=== PATIENT | female | born 1950 | race African-American/Black ===

== ENCOUNTER 2025-01-14 13:23 | Emergency (ER) | payer BC ==
[~2025-01-14] VITALS: Ht 172.7 cm; Wt 81.0 kg
[2025-01-14 13:29] VITALS: O2SAT 97
[2025-01-14 18:12] LABS: BASOPHILS % 0.8 % (0.0-2.0); EOSINOPHILS % 0.3 % (0.0-5.0); HEMATOCRIT. 33.7 % (36.0-48.0); HEMOGLOBIN. 10.5 g/dL (12.0-16.0); LYMPHOCYTES % 19.1 % (20.0-50.0); MEAN CORPUSCULAR HEMOGLOBIN 27.1 pg (28.0-32.0); MEAN CORPUSCULAR HGB CONC 31.2 g/dL (31.0-37.0); MEAN CORPUSCULAR VOLUME 87.1 fL (81.0-99.0); MEAN PLATELET VOLUME 9.8 fl (7.4-10.4); MONOCYTES % 11.3 % (2.0-8.0); NEUTROPHILS % 68.5 % (40.0-76.0); PLATELET 290 x1000/uL (130-400); RED BLOOD CELL COUNT 3.87 mill/uL (4.2-5.4); RED CELL DISTRIBUTION WIDTH 16.4 % (11.6-14.6)
[2025-01-14 18:16] LABS: PROTHROMBIN TIME 10.5 sec (9.6-11.0)
[2025-01-14 18:19] LABS: CHLORIDE 103 mEq/L (98-107); POTASSIUM 3.4 mEq/L (3.5-5.1); SODIUM 144 mEq/L (136-145)
[2025-01-14 18:20] LABS: CALCIUM 10.1 mg/dL (8.7-10.4); CARBON DIOXIDE 32 mEq/L (21-32)
[2025-01-14 18:25] LABS: CREATININE 1.7 mg/dL (0.6-1.0); GLUCOSE 116 mg/dL (70-105); UREA NITROGEN BLOOD 36 mg/dL (9-23)
[2025-01-14 18:27] LABS: ALANINE AMINOTRANSFERASE 12 IU/L (10-49); ALBUMIN 3.8 g/dL (3.2-4.8); ASPARTATE AMINOTRANSFERASE 24 IU/L (<34); BILIRUBIN DIRECT 0.3 mg/dL (<=3.0); BILIRUBIN TOTAL 1.1 mg/dL (0.1-1.0)
[2025-01-14] MEDS ORDERED: CEPH500C2 MT (18:38)
[2025-01-14 19:45] VITALS: BP 109/89; PULSE 68; RESP 18; TEMP 36.9; O2SAT 99
== END 2025-01-14 19:51 | disposition home or self-care (01) ==
LOC: ER 13:23
DX: N39.0 Urinary tract infection, site not specified (principal); F03.90 Unspecified dementia, unspecified severity, without behavioral disturbance, psychotic disturbance, mood disturbance, and anxiety
CPT/HCPCS: 36415; 80048; 80076; 85025; 93005; 99284

== ENCOUNTER 2025-04-24 19:28 | Inpatient (IN) | payer BC, MEDICARE ==
[~2025-04-24] VITALS: Ht 167.6 cm; Wt 70.3 kg
[~2025-04-24 19:28] MED LIST: CEPH500C2 MT; DONE10TA43 MT; METO1TAB24 PO; OLAN2.5T77 PO; QUET100T MT
[2025-04-24 20:29] LABS: BASOPHILS % 0.8 % (0.0-2.0); EOSINOPHILS % 2.0 % (0.0-5.0); HEMATOCRIT. 21.9 % (36.0-48.0); LYMPHOCYTES % 8.7 % (20.0-50.0); MEAN PLATELET VOLUME 7.2 fl (7.4-10.4); MONOCYTES % 6.7 % (2.0-8.0); NEUTROPHILS % 81.8 % (40.0-76.0); PLATELET 931 x1000/uL (130-400); RED BLOOD CELL COUNT 2.64 mill/uL (4.2-5.4); RED CELL DISTRIBUTION WIDTH 18.2 % (11.6-14.6)
[2025-04-24] MEDS: SODIUM CHLORIDE 0.9% 1,000 ML IV ONE (20:29)
[2025-04-24] MEDS: CEFTRIAXONE 1GM/50ML 50 ML IV ONE (20:29)
[2025-04-24 20:31] LABS: HEMOGLOBIN. 7.0 g/dL (12.0-16.0)
[2025-04-24 20:43] LABS: CREATININE 0.9 mg/dL (0.6-1.0); UREA NITROGEN BLOOD 19 mg/dL (9-23)
[2025-04-24 20:45] LABS: ASPARTATE AMINOTRANSFERASE 58 IU/L (<34); BILIRUBIN DIRECT < 0.1 mg/dL (<=3.0); BILIRUBIN TOTAL 0.3 mg/dL (0.1-1.0); PROTEIN TOTAL 6.6 g/dL (6.0-8.3); TROPONIN I HIGH SENSITIVITY < 4 ng/L (3.0-34)
[2025-04-24 21:17] LABS: INR 1.1
[2025-04-24 21:30] LABS: INFLUENZA TYPE A Presumptive Negative (Pres. Neg.)
[2025-04-24 21:31] LABS: INFLUENZA TYPE B Presumptive Negative (Pres. Neg.)
[2025-04-24 22:40] LABS: CLARITY URINE TURBID (CLEAR); COLOR URINE YELLOW (YELLOW); GLUCOSE URINE NEGATIVE (NEGATIVE); KETONES URINE NEGATIVE (NEGATIVE); LEUKOCYTE ESTERASE URINE 3+ (NEGATIVE); NITRITE URINE NEGATIVE (NEGATIVE); OCCULT BLOOD URINE 1+ (NEGATIVE); PH URINE 6.0 (4.5-8.0); PROTEIN URINE 1+ (NEGATIVE); SPECIFIC GRAVITY URINE 1.012 (1.005-1.030); UROBILINOGEN URINE 0.2 E.U./dL (0.2-1.0)
[2025-04-24 22:59] LABS: BACTERIA URINE 2+; SQUAMOUS EPITHELIAL CELL URINE FEW /lpf (RARE/1+); WBC URINE 50-100 /hpf (0-2)
[2025-04-24] MEDS ORDERED: GUAIFENESIN 200MG/10ML SUGAR FREE UDC PO PRN (23:30)
[2025-04-24] MEDS ORDERED: ONDANSETRON HCL 4MG/2ML INJ IV PRN (23:30)
[2025-04-24] MEDS ORDERED: DOCUSATE SODIUM 100MG CAPSULE PO PRN (23:30)
[2025-04-24] MEDS ORDERED: MAGNESIUM/ALUMINUM HYDROXIDE/SIMETHICONE 30ML UDC PO PRN (23:30)
[2025-04-24] MEDS ORDERED: ACETAMINOPHEN 325MG TABLET PO PRN ×2 (23:30)
[2025-04-24] MEDS ORDERED: ACETAMINOPHEN 650MG SUPP PR PRN (23:30)
[2025-04-24 23:53] LABS: *AMPHETAMINES SCREEN URINE NEGATIVE (NEGATIVE); *BARBITURATES SCREEN URINE NEGATIVE (NEGATIVE); *BENZODIAZEPINES SCREEN URINE NEGATIVE (NEGATIVE); *COCAINE SCREEN URINE NEGATIVE (NEGATIVE); METHADONE URINE SCREEN NEGATIVE (NEGATIVE); OPIATES URINE SCREEN NEGATIVE (NEGATIVE)
[2025-04-24 23:54] LABS: CANNABINOID URINE SCREEN NEGATIVE (NEGATIVE); ECSTASY MDMA SCREEN URINE NEGATIVE (NEGATIVE); PHENCYCLIDINE URINE SCREEN NEGATIVE (NEGATIVE)
[2025-04-24] MEDS ORDERED: IPRATROPIUM/ALBUTEROL 0.5-3(2.5)MG/3ML NEB HHN PRN (23:54)
[2025-04-25 00:02] LABS: VITAMIN B12 SERUM 649 pg/mL (211-911)
[2025-04-25 00:18] LABS: FOLIC ACID (FOLATE) SERUM > 20.00 ng/mL (>5.38)
[2025-04-25] MEDS: ACETAMINOPHEN 650MG SUPP PR STA (00:23)
[2025-04-25 00:35] VITALS: BP 129/51; PULSE 102; RESP 18; TEMP 36.9
[2025-04-25 04:00] VITALS: BP 130/53; PULSE 100; RESP 20; TEMP 36.8; O2SAT 99
[2025-04-25 08:00] VITALS: BP 133/64; PULSE 89; RESP 18; TEMP 37.2; O2SAT 98
[2025-04-25] MEDS ORDERED: AZITHROMYCIN 500MG/250ML 250 ML IV SCH (08:00)
[2025-04-25 12:00] VITALS: BP 145/71; PULSE 97; RESP 18; TEMP 37.1; O2SAT 100
[2025-04-25] MEDS: PANTOPRAZOLE SODIUM 40 MG/VIAL IV SCH (12:07)
[2025-04-25] MEDS: DEXT 5%/LACTATED RINGERS 1,000 ML IV SCH ×2 (12:07→14:56)
[2025-04-25] MEDS: ENOXAPARIN 30MG/0.3ML SYR SUBCUT SCH (12:07)
[2025-04-25] MEDS: PIPERACILLIN/TAZO 3.375G/50ML 50 ML IV SCH (14:56)
[2025-04-25 16:00] VITALS: BP 152/80; PULSE 100; RESP 18; TEMP 36.9; O2SAT 100
[2025-04-25 16:39] LABS: BASOPHILS % 0.7 % (0.0-2.0); EOSINOPHILS % 1.2 % (0.0-5.0); HEMATOCRIT. 22.7 % (36.0-48.0); HEMOGLOBIN. 7.2 g/dL (12.0-16.0); LYMPHOCYTES % 8.3 % (20.0-50.0); MEAN PLATELET VOLUME 7.3 fl (7.4-10.4); MONOCYTES % 5.6 % (2.0-8.0); NEUTROPHILS % 84.2 % (40.0-76.0); PLATELET 950 x1000/uL (130-400); RED BLOOD CELL COUNT 2.72 mill/uL (4.2-5.4); RED CELL DISTRIBUTION WIDTH 18.6 % (11.6-14.6)
[2025-04-25 16:48] LABS: CREATININE 0.8 mg/dL (0.6-1.0)
[2025-04-25 16:49] LABS: LDL CHOLESTEROL 56 mg/dL (5-100); TRIGLYCERIDE 75 mg/dL (0-150); UREA NITROGEN BLOOD 15 mg/dL (9-23)
[2025-04-25 16:50] LABS: LACTATE DEHYDROGENASE 144 IU/L (120-246)
[2025-04-25 16:52] LABS: T4 FREE 1.35 ng/dL (0.89-1.76)
[2025-04-25 18:13] LABS: HEPATITIS A AB IGM NEGATIVE (Negative)
[2025-04-25 18:14] LABS: HEPATITIS B CORE AB IGM NEGATIVE (Negative); HEPATITIS C AB NON REACTIVE (Neg) (Negative)
[2025-04-25] MEDS: VANCOMYCIN 1.25GM/250ML 250 ML IV SCH (19:03)
[2025-04-25 20:00] VITALS: BP 147/64; PULSE 86; RESP 19; TEMP 36.6; O2SAT 99
[2025-04-25] MEDS: FERROUS SULFATE 325MG TABLET PO SCH (20:46)
[2025-04-25] MEDS ORDERED: CEFTRIAXONE 1GM/50ML 50 ML IV SCH (21:00)
[2025-04-26] VITALS: BP 155/51; PULSE 93; RESP 16; TEMP 36.6; O2SAT 100
[2025-04-26] MEDS: VANCOMYCIN 500MG/100ML IV SCH ×2 (02:47→21:14)
[2025-04-26 04:00] VITALS: BP 157/76; PULSE 92; RESP 16; TEMP 36.6; O2SAT 98
[2025-04-26 08:00] VITALS: BP 137/80; PULSE 103; RESP 20; TEMP 36.2; O2SAT 96
[2025-04-26 12:00] VITALS: BP 142/71; PULSE 95; RESP 20; TEMP 36.4; O2SAT 97
[2025-04-26 16:00] VITALS: BP 143/64; PULSE 91; RESP 20; TEMP 36.4; O2SAT 97
[2025-04-26 20:00] VITALS: BP 149/70; PULSE 113; RESP 18; TEMP 36.7; O2SAT 97
[2025-04-27] VITALS: BP 137/50; PULSE 60; RESP 18; TEMP 36.4; O2SAT 100
[2025-04-27 04:00] VITALS: BP 142/71; PULSE 102; RESP 18; TEMP 36.7; O2SAT 100
[2025-04-27 08:00] VITALS: BP 159/80; PULSE 97; RESP 20; TEMP 36.3; O2SAT 99
[2025-04-27 12:00] VITALS: BP 159/87; PULSE 101; RESP 20; TEMP 36.6; O2SAT 98
[2025-04-27 16:00] VITALS: BP 148/87; PULSE 116; RESP 20; TEMP 36.6; O2SAT 99
[2025-04-27 19:32] LABS: BASOPHILS % 0.5 % (0.0-2.0); EOSINOPHILS % 2.0 % (0.0-5.0); LYMPHOCYTES % 8.6 % (20.0-50.0); MEAN PLATELET VOLUME 7.2 fl (7.4-10.4); MONOCYTES % 6.2 % (2.0-8.0); NEUTROPHILS % 82.7 % (40.0-76.0); PLATELET 961 x1000/uL (130-400); RED BLOOD CELL COUNT 2.46 mill/uL (4.2-5.4); RED CELL DISTRIBUTION WIDTH 19.0 % (11.6-14.6)
[2025-04-27 19:46] LABS: CREATININE 0.9 mg/dL (0.6-1.0)
[2025-04-27 19:47] LABS: HEMATOCRIT. 20.7 % (36.0-48.0); HEMOGLOBIN. 6.6 g/dL (12.0-16.0); UREA NITROGEN BLOOD 14 mg/dL (9-23)
[2025-04-27 20:00] VITALS: BP 146/81; PULSE 115; RESP 18; TEMP 36.9; O2SAT 100
[2025-04-27] MEDS: CLONIDINE 0.1MG TABLET PO PRN (23:57)
[2025-04-28] VITALS (12 sets, daily range): BP systolic 121–162; BP diastolic 52–95; PULSE 85–119; RESP 18–20; TEMP 36.1–37; O2SAT 97–100
[2025-04-28 10:24] LABS: BASOPHILS % 0.5 % (0.0-2.0); EOSINOPHILS % 2.0 % (0.0-5.0); HEMATOCRIT. 26.8 % (36.0-48.0); HEMOGLOBIN. 8.7 g/dL (12.0-16.0); LYMPHOCYTES % 11.0 % (20.0-50.0); MEAN PLATELET VOLUME 7.0 fl (7.4-10.4); MONOCYTES % 6.2 % (2.0-8.0); NEUTROPHILS % 80.3 % (40.0-76.0); PLATELET 815 x1000/uL (130-400); RED BLOOD CELL COUNT 3.14 mill/uL (4.2-5.4); RED CELL DISTRIBUTION WIDTH 16.9 % (11.6-14.6)
[2025-04-28 10:39] LABS: CREATININE 0.9 mg/dL (0.6-1.0)
[2025-04-28 10:40] LABS: UREA NITROGEN BLOOD 14 mg/dL (9-23)
[2025-04-28] MEDS: MEROPENEM 1G/100ML 100 ML IV SCH (13:39)
[2025-04-28] MEDS: MEGESTROL ACETATE 400 MG/10 ML UDC PO SCH (17:06)
[2025-04-28] MEDS: VANCOMYCIN 1GM PMX (XELLIA) 200 ML IV SCH (23:21)
[2025-04-29 00:11] VITALS: BP 144/68; PULSE 104; RESP 19; TEMP 36.4; O2SAT 98
[2025-04-29 04:00] VITALS: BP 103/55; PULSE 86; RESP 18; TEMP 36.4; O2SAT 100
[2025-04-29 08:00] VITALS: BP 137/89; PULSE 100; RESP 18; TEMP 36.8; O2SAT 100
[2025-04-29 08:04] LABS: PLATELET 867 x1000/uL (130-400); RED BLOOD CELL COUNT 3.14 mill/uL (4.2-5.4); RED CELL DISTRIBUTION WIDTH 17.5 % (11.6-14.6)
[2025-04-29 08:26] LABS: CREATININE 0.8 mg/dL (0.6-1.0); UREA NITROGEN BLOOD 15 mg/dL (9-23)
[2025-04-29 09:43] LABS: BG BASE EXCESS -1.0 mmol/L (-2.0-3.0); BG CARBOXYHEMOGLOBIN 0.3 % (0.5-1.5); BG DEOXYHEMOGLOBIN 2.1 % (0.0-5.0); BG FRACTION INSPIRED OXYGEN 21; BG HCO3 ACT 22.1 mmol/L (21.0-28.0); BG METHEMOGLOBIN 0.1 % (0.5-1.5); BG OXYGEN SATURATION 97.9 % (94.0-98.0); BG OXYHEMOGLOBIN 97.5 % (94.0-98.0); BG PCO2 31.1 mmHg (32.0-45.0); BG PH 7.470 (7.350-7.450); BG PO2 94.5 mmHg (83.0-108.0); BG SAMPLE SITE LEFT RADIAL; BG TOTAL HEMOGLOBIN 9.5 g/dL (12.0-16.0); BG VENT MODE ROOM AIR
[2025-04-29 12:06] VITALS: BP 141/63; PULSE 105; RESP 18; TEMP 36.7; O2SAT 100
[2025-04-29 16:03] VITALS: BP 140/48; PULSE 110; RESP 20; TEMP 36.7; O2SAT 100
[2025-04-29 20:34] VITALS: BP 136/64; PULSE 115; RESP 16; TEMP 36.8
[2025-04-30 00:33] VITALS: BP 151/73; PULSE 111; RESP 19; TEMP 36.9; O2SAT 98
[2025-04-30 04:00] VITALS: BP 135/57; PULSE 105; RESP 19; TEMP 36.6; O2SAT 98
[2025-04-30 08:00] VITALS: BP 152/77; PULSE 89; RESP 18; TEMP 36.7; O2SAT 98
[2025-04-30 11:57] LABS: BG BASE EXCESS -0.2 mmol/L (-2.0-3.0); BG CARBOXYHEMOGLOBIN 0.3 % (0.5-1.5); BG DEOXYHEMOGLOBIN 2.7 % (0.0-5.0); BG FRACTION INSPIRED OXYGEN 21; BG HCO3 ACT 23.0 mmol/L (21.0-28.0); BG METHEMOGLOBIN 0.3 % (0.5-1.5); BG OXYGEN SATURATION 97.3 % (94.0-98.0); BG OXYHEMOGLOBIN 96.7 % (94.0-98.0); BG PCO2 31.7 mmHg (32.0-45.0); BG PH 7.478 (7.350-7.450); BG PO2 90.1 mmHg (83.0-108.0); BG SAMPLE SITE LEFT RADIAL; BG TOTAL HEMOGLOBIN 8.8 g/dL (12.0-16.0); BG VENT MODE ROOM AIR
[2025-04-30 12:00] VITALS: BP 138/99; PULSE 79; RESP 20; TEMP 36.6; O2SAT 100
[2025-04-30 16:00] VITALS: BP 152/73; PULSE 106; RESP 20; TEMP 36.3; O2SAT 98
[2025-04-30 20:00] VITALS: BP 155/94; PULSE 119; RESP 18; TEMP 36.9; O2SAT 99
[2025-05-01] VITALS: BP 149/69; PULSE 115; RESP 18; TEMP 36.6; O2SAT 100
[2025-05-01 04:16] VITALS: BP 146/73; PULSE 106; RESP 17; TEMP 36.2; O2SAT 100
[2025-05-01 08:00] VITALS: BP 130/67; PULSE 101; RESP 18; TEMP 36.4; O2SAT 100
[2025-05-01 12:53] VITALS: BP 147/41; PULSE 98; RESP 16; TEMP 36.2; O2SAT 95
[2025-05-01] MEDS: AMLODIPINE 5MG TABLET PO SCH (12:53)
[2025-05-01 16:00] VITALS: BP 151/60; PULSE 97; RESP 18; TEMP 36.9; O2SAT 100
[2025-05-01 20:00] VITALS: BP 112/82; PULSE 111; RESP 19; TEMP 36.6; O2SAT 100
[2025-05-02] VITALS (7 sets, daily range): BP systolic 110–160; BP diastolic 60–80; PULSE 65–107; RESP 16–18; TEMP 36.1–37; O2SAT 96–100
[2025-05-02] MEDS: ENOXAPARIN 40MG/0.4ML SYR SUBCUT SCH (09:13)
[2025-05-02] MEDS: FERROUS SULFATE 325MG TABLET PO SCH (09:14)
[2025-05-02] MEDS: AMLODIPINE 5MG TABLET PO SCH (09:14)
[2025-05-02] MEDS: MEROPENEM 1G/100ML IV SCH (17:41)
[2025-05-02 18:21] LABS: BASOPHILS % 0.6 % (0.0-2.0); EOSINOPHILS % 1.5 % (0.0-5.0); HEMATOCRIT. 29.2 % (36.0-48.0); HEMOGLOBIN. 9.2 g/dL (12.0-16.0); LYMPHOCYTES % 11.6 % (20.0-50.0); MEAN PLATELET VOLUME 7.4 fl (7.4-10.4); MONOCYTES % 7.4 % (2.0-8.0); NEUTROPHILS % 78.9 % (40.0-76.0); PLATELET 807 x1000/uL (130-400); RED BLOOD CELL COUNT 3.36 mill/uL (4.2-5.4); RED CELL DISTRIBUTION WIDTH 18.0 % (11.6-14.6)
[2025-05-02 18:38] LABS: CREATININE 0.8 mg/dL (0.6-1.0); UREA NITROGEN BLOOD 20 mg/dL (9-23)
[2025-05-02 18:40] LABS: ASPARTATE AMINOTRANSFERASE 13 IU/L (<34); BILIRUBIN TOTAL 0.3 mg/dL (0.1-1.0); PROTEIN TOTAL 6.0 g/dL (6.0-8.3)
[2025-05-03] VITALS: BP 130/71; PULSE 76; RESP 18; TEMP 36.4; O2SAT 99
[2025-05-03 04:00] VITALS: BP 125/78; PULSE 88; RESP 19; TEMP 36.7; O2SAT 100
[2025-05-03 08:00] VITALS: BP 155/86; PULSE 98; RESP 18; TEMP 36.3; O2SAT 100
[2025-05-03 12:00] VITALS: BP 156/71; PULSE 91; RESP 19; TEMP 36.1; O2SAT 98
[2025-05-03 12:11] LABS: BASOPHILS % 0.6 % (0.0-2.0); EOSINOPHILS % 1.4 % (0.0-5.0); HEMATOCRIT. 28.2 % (36.0-48.0); HEMOGLOBIN. 8.9 g/dL (12.0-16.0); LYMPHOCYTES % 13.6 % (20.0-50.0); MEAN PLATELET VOLUME 7.4 fl (7.4-10.4); MONOCYTES % 5.9 % (2.0-8.0); NEUTROPHILS % 78.5 % (40.0-76.0); PLATELET 684 x1000/uL (130-400); RED BLOOD CELL COUNT 3.28 mill/uL (4.2-5.4); RED CELL DISTRIBUTION WIDTH 18.7 % (11.6-14.6)
[2025-05-03 12:22] LABS: CREATININE 0.8 mg/dL (0.6-1.0)
[2025-05-03 12:23] LABS: UREA NITROGEN BLOOD 23 mg/dL (9-23)
[2025-05-03 12:24] LABS: ASPARTATE AMINOTRANSFERASE 11 IU/L (<34)
[2025-05-03 12:25] LABS: BILIRUBIN TOTAL 0.3 mg/dL (0.1-1.0); PROTEIN TOTAL 5.8 g/dL (6.0-8.3)
[2025-05-03 16:00] VITALS: BP 160/89; PULSE 102; RESP 18; TEMP 36.3; O2SAT 97
[2025-05-03 20:00] VITALS: BP 137/79; PULSE 86; RESP 17; TEMP 37.3; O2SAT 100
[2025-05-04] VITALS: BP 117/68; PULSE 68; RESP 19; TEMP 36.3; O2SAT 99
[2025-05-04 04:00] VITALS: BP 106/70; PULSE 73; RESP 18; TEMP 36.4; O2SAT 100
[2025-05-04 08:00] VITALS: BP 143/79; PULSE 102; RESP 17; TEMP 36.6; O2SAT 100
[2025-05-04] MEDS ORDERED: LIDOCAINE HCL/EPINEPHRINE 1%-EPI 1:100,000 20ML VIAL INFIL SCH (08:00)
[2025-05-04 08:01] LABS: BASOPHILS % 0.4 % (0.0-2.0); EOSINOPHILS % 0.8 % (0.0-5.0); HEMATOCRIT. 27.1 % (36.0-48.0); HEMOGLOBIN. 8.9 g/dL (12.0-16.0); LYMPHOCYTES % 9.7 % (20.0-50.0); MEAN PLATELET VOLUME 7.2 fl (7.4-10.4); MONOCYTES % 5.5 % (2.0-8.0); NEUTROPHILS % 83.6 % (40.0-76.0); PLATELET 730 x1000/uL (130-400); RED BLOOD CELL COUNT 3.21 mill/uL (4.2-5.4); RED CELL DISTRIBUTION WIDTH 18.6 % (11.6-14.6)
[2025-05-04 08:20] LABS: CREATININE 0.8 mg/dL (0.6-1.0)
[2025-05-04 08:21] LABS: UREA NITROGEN BLOOD 23 mg/dL (9-23)
[2025-05-04 08:23] LABS: ASPARTATE AMINOTRANSFERASE 9 IU/L (<34); BILIRUBIN DIRECT < 0.1 mg/dL (<=3.0); BILIRUBIN TOTAL 0.3 mg/dL (0.1-1.0); PROTEIN TOTAL 5.7 g/dL (6.0-8.3)
[2025-05-04 12:00] VITALS: BP 151/67; PULSE 83; RESP 18; TEMP 36.9; O2SAT 98
[2025-05-04 16:00] VITALS: BP 143/72; PULSE 96; RESP 17; TEMP 36.7; O2SAT 98
[2025-05-04 20:00] VITALS: BP 161/78; PULSE 103; RESP 19; TEMP 37.2; O2SAT 100
[2025-05-04] MEDS: MEROPENEM 1G/100ML IV SCH (21:54)
[2025-05-05] VITALS: BP 160/80; PULSE 105; RESP 20; TEMP 37.3; O2SAT 99
[2025-05-05 04:00] VITALS: BP 159/82; PULSE 76; RESP 19; TEMP 36.3; O2SAT 99
[2025-05-05 08:00] VITALS: BP 139/70; PULSE 95; RESP 17; TEMP 36.4; O2SAT 98
[2025-05-05 12:00] VITALS: BP 121/53; PULSE 100; RESP 16; TEMP 36.1; O2SAT 97
[2025-05-05 16:00] VITALS: BP 133/73; PULSE 99; RESP 18; TEMP 36.5; O2SAT 96
[2025-05-06] VITALS: BP 131/46; PULSE 78; RESP 18; TEMP 36.5; O2SAT 95
[2025-05-06 08:00] VITALS: BP 131/80; PULSE 110; RESP 18; TEMP 36.5; O2SAT 96
[2025-05-06 12:00] VITALS: BP 145/78; PULSE 97; RESP 18; TEMP 36.6; O2SAT 98
[2025-05-06] MEDS ORDERED: FERR-63 PO (12:03)
[2025-05-06] MEDS ORDERED: MEGE400O46 PO (12:03)
[2025-05-06 16:00] VITALS: BP 135/76; PULSE 96; RESP 17; TEMP 36.4; O2SAT 98
[2025-05-06 18:00] VITALS: BP 140/70; PULSE 96; RESP 17; TEMP 36.5; O2SAT 98
[2025-05-06 22:13] LABS: BASOPHILS % 0.4 % (0.0-2.0); EOSINOPHILS % 0.8 % (0.0-5.0); HEMATOCRIT. 25.9 % (36.0-48.0); HEMOGLOBIN. 8.2 g/dL (12.0-16.0); LYMPHOCYTES % 8.6 % (20.0-50.0); MEAN PLATELET VOLUME 7.7 fl (7.4-10.4); MONOCYTES % 8.5 % (2.0-8.0); NEUTROPHILS % 81.7 % (40.0-76.0); PLATELET 645 x1000/uL (130-400); RED BLOOD CELL COUNT 2.99 mill/uL (4.2-5.4); RED CELL DISTRIBUTION WIDTH 19.5 % (11.6-14.6)
[2025-05-06 22:30] LABS: CREATININE 0.9 mg/dL (0.6-1.0)
[2025-05-06 22:31] LABS: UREA NITROGEN BLOOD 29 mg/dL (9-23)
[2025-05-07 08:00] VITALS: BP 155/64; PULSE 113; RESP 20; TEMP 36.4; O2SAT 99
[2025-05-07] MEDS: AMLODIPINE 5MG TABLET PO SCH (08:39)
[2025-05-07 12:00] VITALS: BP 143/66; PULSE 113; RESP 20; TEMP 36.5; O2SAT 98
[2025-05-07 12:07] LABS: BASOPHILS % 0.5 % (0.0-2.0); EOSINOPHILS % 0.7 % (0.0-5.0); HEMATOCRIT. 23.3 % (36.0-48.0); HEMOGLOBIN. 7.6 g/dL (12.0-16.0); LYMPHOCYTES % 8.0 % (20.0-50.0); MEAN PLATELET VOLUME 7.7 fl (7.4-10.4); MONOCYTES % 7.5 % (2.0-8.0); NEUTROPHILS % 83.3 % (40.0-76.0); PLATELET 606 x1000/uL (130-400); RED BLOOD CELL COUNT 2.72 mill/uL (4.2-5.4); RED CELL DISTRIBUTION WIDTH 19.7 % (11.6-14.6)
[2025-05-07 12:21] LABS: CREATININE 0.8 mg/dL (0.6-1.0); UREA NITROGEN BLOOD 28 mg/dL (9-23)
[2025-05-07 16:00] VITALS: BP 128/57; PULSE 104; RESP 20; TEMP 36.4; O2SAT 98
[2025-05-08 07:55] VITALS: BP 165/82; PULSE 107; RESP 20; TEMP 36.1; O2SAT 100
[2025-05-08] MEDS: BLOOD SUGAR DIAGNOSTIC STRIP TEST SCH (08:00)
[2025-05-08] MEDS ORDERED: DEXTROSE 50% WATER 50ML SYRINGE IV PRN (08:00)
[2025-05-08 08:02] LABS: CREATININE 0.8 mg/dL (0.6-1.0); UREA NITROGEN BLOOD 25 mg/dL (9-23)
[2025-05-08 08:04] LABS: HEMATOCRIT. 23.4 % (36.0-48.0); HEMOGLOBIN. 7.8 g/dL (12.0-16.0); MEAN PLATELET VOLUME 7.8 fl (7.4-10.4); PLATELET 612 x1000/uL (130-400); RED BLOOD CELL COUNT 2.77 mill/uL (4.2-5.4); RED CELL DISTRIBUTION WIDTH 19.3 % (11.6-14.6)
[2025-05-08] MEDS: INSULIN LISPRO 100 UNITS/ML SUBCUT SCH (09:57)
[2025-05-08 12:00] VITALS: BP 149/69; PULSE 98; RESP 20; TEMP 36.3; O2SAT 100
[2025-05-08 15:53] LABS: LYMPHOCYTES % MANUAL 10.0 % (20.0-60.0); MONOCYTES % MANUAL 2.0 % (2.0-8.0); NEUTROPHILS % MANUAL 88.0 % (45.0-75.0); PLATELET ESTIMATE INCREASED
[2025-05-08 16:00] VITALS: BP 160/72; PULSE 108; RESP 20; TEMP 36.2; O2SAT 100
[2025-05-09] VITALS: BP 142/64; PULSE 112; RESP 20; TEMP 36.5; O2SAT 100
[2025-05-09 08:00] VITALS: BP 144/61; PULSE 100; RESP 17; TEMP 36.7; O2SAT 9
[2025-05-09 12:00] VITALS: BP 165/68; PULSE 90; RESP 18; TEMP 36.7; O2SAT 96
[2025-05-09 16:00] VITALS: BP 155/71; PULSE 75; RESP 19; TEMP 36.6; O2SAT 96
[2025-05-09 20:00] VITALS: BP 136/79; PULSE 68; RESP 20; TEMP 36.4; O2SAT 98
[2025-05-10] VITALS (7 sets, daily range): BP systolic 105–175; BP diastolic 68–86; PULSE 75–103; RESP 16–19; TEMP 36.3–36.8; O2SAT 97–100
[2025-05-11] VITALS: BP 129/80; PULSE 84; RESP 17; TEMP 36.9; O2SAT 100
[2025-05-11 04:00] VITALS: BP 132/84; PULSE 72; RESP 20; TEMP 36.3; O2SAT 98
[2025-05-11 08:00] VITALS: BP 160/78; PULSE 106; RESP 19; TEMP 36.8; O2SAT 100
== END 2025-05-11 14:09 | DRG 853 ==
LOC: ER 19:28 → 7WST 21:02 → EDBEDREQTM 21:04 → EDBEDREQ 21:04 → EDBEDREQSVC 21:19 → ENRESERV 23:58 → 7WST 04-25 00:21 → 6EST 05-02 19:45
PROVIDERS: ADMIT Hospitalist; ATTEND Hospitalist
PROC: 30233N1 Transfusion of Nonautologous Red Blood Cells into Peripheral Vein, Percutaneous Approach (ICD-10-PCS; 2025-04-28)
PROC: 0JB70ZZ Excision of Back Subcutaneous Tissue and Fascia, Open Approach (ICD-10-PCS; principal; 2025-05-05)
DX: A41.9 Sepsis, unspecified organism (principal); L89.154 Pressure ulcer of sacral region, stage 4; L89.323 Pressure ulcer of left buttock, stage 3; L89.313 Pressure ulcer of right buttock, stage 3; N39.0 Urinary tract infection, site not specified; E46 Unspecified protein-calorie malnutrition; Z16.12 Extended spectrum beta lactamase (ESBL) resistance; G93.40 Encephalopathy, unspecified; M86.8X8 Other osteomyelitis, other site; Z20.822 Contact with and (suspected) exposure to COVID-19; E11.69 Type 2 diabetes mellitus with other specified complication; B96.1 Klebsiella pneumoniae [K. pneumoniae] as the cause of diseases classified elsewhere; R62.7 Adult failure to thrive; R74.01 Elevation of levels of liver transaminase levels; D63.8 Anemia in other chronic diseases classified elsewhere; I25.10 Atherosclerotic heart disease of native coronary artery without angina pectoris; I10 Essential (primary) hypertension; K80.20 Calculus of gallbladder without cholecystitis without obstruction; B95.7 Other staphylococcus as the cause of diseases classified elsewhere; E61.1 Iron deficiency; D75.839 Thrombocytosis, unspecified; E86.0 Dehydration; Z74.01 Bed confinement status; Z79.899 Other long term (current) drug therapy; Z68.25 Body mass index [BMI] 25.0-25.9, adult
CPT/HCPCS: 36415; 36600; 71045; 72192; 76700; 80048; 80051; 80053; 80061; 80076; 80202; 80305; 81003; 82140; 82270; 82375; 82550; 82570; 82607; 82728; 82746; 82805; 82962; 83036; 83540; 83550; 83605; 83615; 84145; 84439; 84443; 84484; 85025; 85027; 85044; 85379; 86705; 86709; 86850; 86900; 86920; 87077; 87186; 87340; 87426; 87804; 92610; 93005; 93306; 93970; 97166; 99291; A4606; A6449; J0456; J0696; J1650; J1815; J2004; J2185; J2470; J2543; J3370; J7030; J7121; P9016